=== PATIENT | female | born 1995 | race Caucasian/White ===

== ENCOUNTER 2019-10-10 02:19 | Emergency (ER) | payer OTHER ==
[~2019-10-10] VITALS: Ht 154.9 cm; Wt 69.9 kg
[2019-10-10 02:33] VITALS: Ht 154.9 cm; Wt 69.9 kg
[2019-10-10 07:11] VITALS: BP 112/70
== END 2019-10-10 07:11 | disposition home or self-care (01) ==
LOC: ED 02:19
DX: J02.9 Acute pharyngitis, unspecified (principal); J45.909 Unspecified asthma, uncomplicated
CPT/HCPCS: J1100; Q0162